=== PATIENT | female | born 2000 | race African-American/Black ===

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

== ENCOUNTER 2021-03-16 04:26 | Emergency (ER) | payer SELFPAY ==
[2021-03-16] MEDS ORDERED: hydrALAZINE 25 MG TAB ONE (04:43)
[2021-03-16] MEDS ORDERED: hydrOXYzine 25 MG TAB ONE (04:43)
== END 2021-03-16 05:03 | disposition home or self-care (01) ==
LOC: ERS 04:26
DX: F41.0 Panic disorder [episodic paroxysmal anxiety] (principal); F17.210 Nicotine dependence, cigarettes, uncomplicated
CPT/HCPCS: 99283

== ENCOUNTER 2021-10-03 03:50 | Emergency (ER) | payer SELFPAY ==
[2021-10-03] MEDS ORDERED: HYDROcodone/Acetaminophen 10/325 mg Tablet ONE (04:47)
== END 2021-10-03 04:42 | disposition home or self-care (01) ==
LOC: ERS 03:50
DX: S83.91XA Sprain of unspecified site of right knee, initial encounter (principal); X50.1XXA Overexertion from prolonged static or awkward postures, initial encounter; F17.210 Nicotine dependence, cigarettes, uncomplicated

== ENCOUNTER 2022-01-27 01:51 | Emergency (ER) | payer SELFPAY ==
[2022-01-27] MEDS ORDERED: Ibuprofen 200 MG TAB ONE ×2 (02:16→02:18)
== END 2022-01-27 02:27 | disposition home or self-care (01) ==
LOC: ERS 01:51
DX: S62.141A Displaced fracture of body of hamate [unciform] bone, right wrist, initial encounter for closed fracture (principal); F17.210 Nicotine dependence, cigarettes, uncomplicated; Y04.0XXA Assault by unarmed brawl or fight, initial encounter
CPT/HCPCS: 29125

== ENCOUNTER 2022-02-12 11:23 | Emergency (ER) | payer SELFPAY | END 2022-02-12 12:51 | disposition home or self-care (01) | LOC: ERS 11:23 | DX: S62.141A Displaced fracture of body of hamate [unciform] bone, right wrist, initial encounter for closed fracture (principal); S62.306A Unspecified fracture of fifth metacarpal bone, right hand, initial encounter for closed fracture; F17.210 Nicotine dependence, cigarettes, uncomplicated; Y93.19 Activity, other involving water and watercraft; Y92.009 Unspecified place in unspecified non-institutional (private) residence as the place of occurrence of the external cause | CPT/HCPCS: 29125 ==

== ENCOUNTER 2022-02-14 17:26 | Emergency (ER) | payer SELFPAY ==
[2022-02-14 18:16] LABS: #Eosinphils 0.2 thou/uL (0.0-0.7); #Monocytes 0.6 thou/uL (0.11-0.59); #Neutrophils 8.4 thou/uL (1.40-6.50); %Basophils 0.4 % (0.0-1.0); %Eosinophils 1.6 % (0.0-10.0); %Lymphocytes 24.4 % (28.0-48.0); %Monocytes 4.8 % (0.0-4.0); %Neutrophils 68.8 % (31.0-61.0); Hemoglobin 13.9 g/dL (12.0-16.0); Mean Corpuscular Hemoglobin 29.4 pg (25.0-35.0); Platelet Count 285 10x3/uL (130-400); RBC Distribution Width 13.5 % (11.5-14.5); Red Blood Cell (RBC) Count 4.72 mill/uL (4.00-5.20); White Blood Cell (WBC) Count 12.3 10x3/uL (4.8-10.8)
[2022-02-14] MEDS ORDERED: Acetaminophen 500 MG TAB ONE (18:30)
[2022-02-14 18:40] LABS: ALT (SGPT) 22 U/L (8-55); AST (SGOT) 25 U/L (5-34); Albumin 4.6 g/dL (3.5-5.0); Alkaline Phosphatase 126 U/L (40-100); Anion Gap 12 mmol/L (10-20); BUN (Urea Nitrogen) 12 mg/dL (7.0-18.7); Bilirubin, Total 0.3 mg/dL (0.2-1.2); Calc. Creatinine Clearance 0 mL/min (70-130); Calcium 9.7 mg/dL (7.8-10.44); Carbon Dioxide 25 mmol/L (22-29); Chloride 104 mmol/L (98-107); Estimated GFR 88; Globulin 4.2 g/dL (2.4-3.5); Glucose 73 mg/dL (70-105); Lipase 32 U/L (8-78); Potassium 3.8 mmol/L (3.5-5.1); Protein, Total 8.8 g/dL (6.0-8.3); Sodium 137 mmol/L (136-145)
[2022-02-14 19:02] LABS: Bacteria/HPF None Seen HPF (None Seen); Bilirubin Negative (Negative); Blood, Urine Negative (Negative); Clarity Clear (Clear); Glucose, Urine (Dipstick) Normal (Negative); Ketone, Urine Negative (Negative); Leukocyte 25 Leu/uL (Negative); Nitrite Negative (Negative); Protein, Urine (Dipstick) Negative (Neg-Trace); RBC/HPF 0-3 HPF (0-3); Specific Gravity, Urine 1.006 (1.002-1.036); Squamous Epithelial None Seen HPF (0-3); Urobilinogen Normal mg/dL (Less than 2); WBC/HPF 0-3 HPF (0-3)
== END 2022-02-14 20:28 | disposition home or self-care (01) ==
LOC: ERS 17:26
DX: N93.9 Abnormal uterine and vaginal bleeding, unspecified (principal)
CPT/HCPCS: 36415; 76856; 80053; 81003; 81015; 83690; 84702; 85025; 86900; 86901

== ENCOUNTER 2022-06-18 13:14 | Emergency (ER) | payer SELFPAY ==
[2022-06-18] MEDS ORDERED: Ketorolac Tromethamine 30 MG/ML VIAL ONE (14:18)
== END 2022-06-18 14:28 | disposition home or self-care (01) ==
LOC: ERS 13:14
DX: M25.562 Pain in left knee (principal); F17.210 Nicotine dependence, cigarettes, uncomplicated; W20.8XXA Other cause of strike by thrown, projected or falling object, initial encounter
CPT/HCPCS: 96372; J1885

== ENCOUNTER 2023-05-05 11:03 | Emergency (ER) | payer SELFPAY ==
[2023-05-05] MEDS ORDERED: Boostrix 0.5 ML (Tdap) VIAL (>/=7 yrs of age) ONE (11:32)
== END 2023-05-05 12:01 ==
LOC: ERS 11:03
DX: S60.417A Abrasion of left little finger, initial encounter (principal); M25.562 Pain in left knee; M25.532 Pain in left wrist; F17.210 Nicotine dependence, cigarettes, uncomplicated; X58.XXXA Exposure to other specified factors, initial encounter; Y93.02 Activity, running
CPT/HCPCS: 90471; 90715